=== PATIENT | male | born 1995 | race Caucasian/White ===

== ENCOUNTER 2019-03-10 19:29 | Observation (INO) ==
[2019-03-10] MEDS ORDERED: ALBUTEROL SULFATE/IPRATROPIUM 3 ML NEBU IH ONE ×3 (19:32→19:48)
[2019-03-10] MEDS ORDERED: METHYLPREDNISOLONE SOD SUCC/PF 125 MG/2 ML VIAL IV ONE (19:35)
--- NOTE | 2019-03-10 19:41 | ERNOTE ---
Dyspnea - Date Date of Service: 03/10/19 - General Presenting Symptoms: difficulty of breathing Time Seen by Provider: 03/10/19 19:34 Source: patient, family Exam Limitations: clinical condition - Immun/Allergies/Home Medications Immunizations: IMMUNIZATION HX Immunizations Up to Date Yes History of Influenza Vaccine No Hx Pneumococcal Vaccination No Allergies/Adverse Reactions: Allergies No Known Allergies Allergy (Verified 03/10/19 19:39) Home Medications: HOME MEDICATIONS Albuterol Sulfate [Ventolin HFA] 1 puff IH Q6H PRN #1 inhaler 01/09/18 [Last Taken Unknown] Loratadine [Claritin] 10 mg PO DAILY 01/09/18 [Last Taken Unknown] Methylprednisolone [Medrol Dosepak] 4 mg PO DAILY #21 tab.ds.pk 01/09/18 [Last Taken Unknown] - Pain Score Pain Score #1 Pain Score: 0 - History of Present Illness Narrative: The patient is a 23 year old male who presents for dyspnea which began today. There are associated symptoms of cough. The patient denies pain. There are no alleviating factors. There are aggravating factors of exertion. Previous treatments have included: none. The past medical history includes: noncontributory. The social history is negative. The patient has had no ill contacts. Patient reports he has been having URI type symptoms for the past 2 weeks but today had increased dyspnea with wheezing. Patient arrival via POV. Review of Systems - Review of Systems Constitutional: Present: fatigue. Absent: fever EYE: Present: no symptoms reported ENT: Present: no symptoms reported. Absent: ear pain, nasal drainage, sore throat Respiratory: Present: shortness of breath, cough, wheezing Cardiology: Present: no symptoms reported. Absent: chest pain Gastrointestinal/Abdominal: Present: no symptoms reported. Absent: nausea, vomiting, diarrhea, abdominal pain Genitourinary: Present: no symptoms reported. Absent: dysuria All Other Systems: All systems neg except as marked Social History: Preferred Language Belarusian Smoking Status Never smoker Do you dip or chew tobacco Yes Psych History No pertinent hx Alcohol Use occasionally Drug Use none No Social History Section defined Physical Exam - Physical Exam General Appearance: Present: wd/wn, alert, severe distress Head Exam: Present: normal inspection Eye Exam: Normal inspection: bilateral Respiratory: Present: chest nontender, respiratory distress, accessory muscle use, wheezing - diffuse expiratory, other - subcostal retractions Cardiovascular/Chest: Present: no murmur, tachycardia Gastrointestinal/Abdominal: Present: normal bowel sounds, nontender, nondistended, soft, no organomegaly Neurological Exam: Present: alert, oriented, normal mood/affect Skin Exam: Present: normal color, warm/dry Progress - Date and Time Seen: Date and Time: 03/10/19 20:48 Discussed results with patient. Remains to have diffuse expiratory wheezing and scattered inspiratory wheezing. Patient remains tachycardic with rate of 103 and SpO2 92% RA. Discussed case with . Will admit for observation d ue to asthma attach with need for continued monitoring of medication response. Patient states that he has had similar episodes in the past with treatment but has not been officially dx with asthma or is on any maintenance medication. - Results and Orders Patient's Lab Results:: I have reviewed the patient's lab results. - Vital Signs Patient's Vital Signs:: I have reviewed the patient's vital signs. Vital Signs: Vital Signs 03/10/19 19:34 03/10/19 19:35 Temperature 36.2 C Pulse Rate 123 H 121 H Respiratory Rate 26 H 24 H Blood Pressure 154/119 H O2 Sat by Pulse Oximetry 93 93 - EKG EKG #1 EKG: NSR - tachycardia, nonspecific ST T wave changes EKG read: Reviewed by me - X-Ray X-Ray #1 X-Ray: chest Interpretation: Reviewed by me X-ray Comments: Peribronchial cuffing. Reviewed with . - Progress/Reassessment Chief Complaint: Dyspnea Progress:: Improved Progress Note-Subjective: 03/10/19 20:17 Air exchange improved. Patient breathing more comfortably with resolution of accessory muscle use and retractions. Patient remains to have diffuse audible expiratory wheezing with scattered inspiratory wheezing. Departure Clinical Impression: Asthma attack Qualifiers: Asthma severity: unspecified severity Asthma persistence: unspecified Qualified Code(s): J45.901 - Unspecified asthma with (acute) exacerbation - Departure Disposition: Still a patient Condition: Fair
[2019-03-10 19:50] LABS: Hematocrit 48.5 % (42.0-52.0); Mean Cell Volume 85.8 fl (78-100); Mean Corpuscular Hemoglobin 30.1 pg (27-31); Mean Corpuscular Hgb Conc 35.1 g/dl (32-36); Mean Platelet Volume 10.5 fl (8-11.3); Neutrophil # 8.5 K/mm3 (1.3-6.0); Neutrophil % 63.6 % (42-75.0); Platelet Count 258 K/mm3 (150-450); Red Blood Count 5.65 M/mm3 (4.7-6.0); Red Cell Distribution Width 12.7 % (11.5-14.0); White Blood Count 13.3 K/mm3 (4.0-10.5)
[2019-03-10 20:08] LABS: ALT 44 U/L (19-67); AST 19 U/L (0-48); Albumin * 3.7 gm/dl (3.4-5.0); Alkaline Phosphatase * 77 U/L (50-170); Anion Gap 13.6 mmol/L (6.8-13.8); BUN/Creatinine Ratio 9.6 (9.0-21.6); Bilirubin, Total 0.4 mg/dL (0.0-1.1); Blood Urea Nitrogen 11 mg/dL (6-23); Ca. Corrected For Albumin 8.8 mg/dL (8.4-10.2); Calcium * 8.9 mg/dL (7.9-10.9); Carbon Dioxide 28.4 mmol/L (24-32.6); Chloride 106 mmol/L (97-106); Glucose * 93 mg/dL (70-110); Sodium 144 mmol/L (132-142); Total Protein 7.6 gm/dL (6.2-8.2)
[2019-03-10 20:09] LABS: Troponin I Less than 0.017 ng/mL (0.00-0.10)
--- NOTE | 2019-03-10 22:47 | HP ---
Chief Complaint - Chief Complaint Date of Service: 03/10/19 Time of Service: 22:47 Chief Complaint: SOB,wheezing History of Present Illness: 23-year-old male presented to the ER with 2 weeks of worsening shortness of breath and cough. Patient has history of asthma but has not seen his PCP in over a year. He is out of his inhaler medication which normally helps. Patient states when he gets this way usually just "rides it out "but this time is continued to worsen to the point where he was having significant difficulty breathing. In the ER patient was found to be wheezy bilaterally and was satting 92% on room air. His other vital signs are stable. Patient received 2 DuoNeb treatments and a 125 mg of Solu-Medrol. Patient was admitted to the hospital in observation for acute asthma exacerbation. He denies fever or chills, denies p roductive cough. Medical History (Updated 03/10/19 @ 21:24 by Tania Akhtar RN) Asthma Family History: Family History (Last Reviewed 03/10/19 @ 21:25 by Tania Akhtar RN) Mother Hypertension Grandmother Heart failure Grandfather Heart failure COPD (chronic obstructive pulmonary disease) Social History: Patient Lives/Resources Home Utilized Preferred Language Tajik Do you have any advent or No cultural preference? Smoking Status Never smoker Have you smoked in the past 12 No months Do you dip or chew tobacco Yes Psych History No pertinent hx Alcohol Use occasionally Drug Use none No Social History Section defined Review Of Systems (GEN) - Review of Systems Generalized/Overall Review: Absent: Weakness, Chills, Fever EENTM: Present: No Symptoms Reported Respiratory: Present: Cough, Shortness of Breath, Wheezing Cardiac: Absent: Chest Pain, Edema, Palpitations Abdominal: Present: No Symptoms Reported Genitourinary: Present: No Symptoms Reported Musculoskeletal: Present: No Symptoms Reported Neurological: Present: No Symptoms Reported Skin: Present: No Symptoms Reported Endocrine: Present: No Symptoms Reported Immunizations: IMMUNIZATION HX Immunizations Up to Date Yes History of Influenza Vaccine No Hx Pneumococcal Vaccination No Allergies/Adverse Reactions: Allergies Allergy/AdvReac Type Severity Reaction Status Date / Time No Known Allergies Allergy Verified 03/10/19 19:39 Exam - Exam Vital Signs: Vital Signs - Last Taken Temp 37.6 C 03/10/19 21:28 Pulse 101 H 03/10/19 21:28 Resp 18 03/10/19 21:28 BP 143/82 H 03/10/19 21:28 Pulse Ox 94 03/10/19 21:28 Constitutional: Present: Alert, Oriented x3, No distress, Obese ENT Exam: Present: hearing grossly normal. Absent: nasal congestion, nasal drainage Eye Exam: bilateral eye: normal inspection Neck: Present: non-tender, supple Respiratory: Present: wheezing, expiration (prolonged). Absent: respiratory distress Cardiovascular/Chest: Present: normal peripheral pulses, regular rate, rhythm Abdomen: Present: Normal bowel sounds, soft, nontender Skin Exam: Present: normal color, warm/dry Appearance: Present: appropriate appearance, appropriate insight Eye contact: Present: cooperative, good eye contact Thoughts: Present: normal thought pattern, normal mood /affect Diagnostic Studies: Abnormal Lab Results 03/10/19 03/10/19 Range/Units 19:36 20:02 WBC 13.3 H (4.0-10.5) K/mm3 Immature Gran # (Auto) 0.05 H (0.000-0.0310) K/mm3 Monocytes % 9.7 H (0.0-9) % Eosinophils % 5.2 H (0.0-3.0) % Neutrophils # 8.5 H (1.3-6.0) K/mm3 Monocytes # 1.3 H (0.0-1.0) k/mm3 Sodium 144 H (132-142) mmol/L Plasma Sodium 144 H (130-142) mmol/L Laboratory Results WBC 13.3 K/mm3 (4.0-10.5) H 03/10/19 19:36 RBC 5.65 M/mm3 (4.7-6.0) 03/10/19 19:36 Hgb 17.0 gm/dL (13.5-18.0) 03/10/19 19:36 Hct 48.5 % (42.0-52.0) 03/10/19 19:36 MCV 85.8 fl (78-100) 03/10/19 19:36 MCH 30.1 pg (27-31) 03/10/19 19:36 MCHC 35.1 g/dl (32-36) 03/10/19 19:36 RDW 12.7 % (11.5-14.0) 03/10/19 19:36 Plt Count 258 K/mm3 (150-450) 03/10/19 19:36 MPV 10.5 fl (8-11.3) 03/10/19 19:36 Immature Gran % (Auto) 0.40 % (0.001-0.429) 03/10/19 19:36 Immature Gran # (Auto) 0.05 K/mm3 (0.000-0.0310) H 03/10/19 19:36 63.6 % (42-75.0) 03/10/19 19:36 20.6 % (20-51) 03/10/19 19:36 9.7 % (0.0-9) H 03/10/19 19:36 5.2 % (0.0-3.0) H 03/10/19 19:36 0.5 % (0.0-1.0) 03/10/19 19:36 Nucleated RBC % 0.0 k/mm3 (0-1) 03/10/19 19:36 8.5 K/mm3 (1.3-6.0) H 03/10/19 19:36 2.75 k/mm3 (1.5-3.5) 03/10/19 19:36 1.3 k/mm3 (0.0-1.0) H 03/10/19 19:36 0.7 k/mm3 (0.0-0.7) 03/10/19 19:36 Absolute Basophils 0.1 k/mm3 (0.0-0.1) 03/10/19 19:36 0.33 ug/mL (0.19-0.49) 03/10/19 20:02 Sodium 144 mmol/L (132-142) H 03/10/19 20:02 144 mmol/L (130-142) H 03/10/19 20:02 Potassium 4.0 mmol/L (3.4-4.6) 03/10/19 20:02 Chloride 106 mmol/L (97-106) 03/10/19 20:02 Carbon Dioxide 28.4 mmol/L (24-32.6) 03/10/19 20:02 13.6 mmol/L (6.8-13.8) 03/10/19 20:02 BUN 11 mg/dL (6-23) 03/10/19 20:02 1.15 mg/dL (0.4-1.4) 03/10/19 20:02 Est GFR (Non-Af Amer) 84 mL/min (60-130) 03/10/19 20:02 9.6 (9.0-21.6) 03/10/19 20:02 93 mg/dL (70-110) 03/10/19 20:02 0.8 mmol/L (0.4-2.0) 03/10/19 20:02 Calcium 8.9 mg/dL (7.9-10.9) 03/10/19 20:02 Calcium Adj for Albumin 8.8 mg/dL (8.4-10.2) 03/10/19 20:02 0.4 mg/dL (0.0-1.1) 03/10/19 20:02 AST 19 U/L (0-48) 03/10/19 20:02 ALT 44 U/L (19-67) 03/10/19 20:02 77 U/L (50-170) 03/10/19 20:02 Less than 0.017 ng/mL (0.00-0.10) 03/10/19 20:02 7.6 gm/dL (6.2-8.2) 03/10/19 20:02 3.7 gm/dl (3.4-5.0) 03/10/19 20:02 Assessment/Plan - Narrative Narrative: Patient currently feeling much better after being admitted to the floor with the treatments received in the ER. Will continue duo nebs every 4 hours as needed. We will also resume prednisone in the morning 40 mg every morning which he will go home on for likely another 5 days. Patient agrees to treatment plan, it does look for PCP which I will happily take care of him. Next Patient also wanted to discuss was in the room his history of depression. Patient recently lost his grandfather who he was very close with and has struggled with depression ever since. Patient denies suicidal or homicidal ideation but states that he has limited sivakumar, difficulty sleeping, and does not want to socialize with those around him anymore. Patient endorses actively pushing people away. Family member in the room confirms this. Patient is wondering if he can be started on an antidepressant prior to him leaving as he would not be able to follow-up with me for close to a month due to both her schedules. Explained that we would discuss this again prior to discharge which she agreed with. Regular diet ordered, no DVT prophylaxis patient will be here for only a short time. Nurse will call with any questions or concerns. - Assessment/Plan (1) Asthma attack Problem: Acute Qualifiers: Asthma severity: unspecified severity Asthma persistence: unspecified Qualified Code(s): J45.901 - Unspecified asthma with (acute) exacerbation (2) Depression Problem: Acute
[2019-03-10] MEDS: ALBUTEROL SULFATE/IPRATROPIUM 3 ML NEBU IH SCH (23:18)
[2019-03-11] MEDS: ALBUTEROL SULFATE/IPRATROPIUM 3 ML NEBU IH SCH ×4 (02:05→14:01)
[2019-03-11] MEDS ORDERED: predniSONE 20 MG TABLET PO ONE (07:00)
--- NOTE | 2019-03-11 11:43 | DS ---
(1) Asthma attack Problem: Acute Qualifiers: Asthma severity: unspecified severity Asthma persistence: unspecified Qualified Code(s): J45.901 - Unspecified asthma with (acute) exacerbation (2) Depression Problem: Acute Description of Stay: Patient had no acute events overnight and is feeling much better. His vital signs are stable and he is satting 93% on room air. Lung sounds significantly improved with no wheezes heard. Patient is ready to be discharged home and will in 1 month follow-up with me due to scheduling conflict. Patient will be discharged home with another 5 days of prednisone to be taken starting tomorrow. Patient will also be discharged home with pro-air which she has had in the past and knows how to use. Lastly patient will be started on Prozac 20 mg and will follow-up with me to discuss how his asthma depression is doing in 1 month. Patient did agree with treatment plan, discharged home in stable condition. Procedures Performed: none Results and Findings: Lab Pending Results 03/10/19 19:36: WBC 13.3 H, RBC 5.65, Hgb 17.0, Hct 48.5, MCV 85.8, MCH 30.1, MCHC 35.1, RDW 12.7, Plt Count 258, MPV 10.5, Immature Gran % (Auto) 0.40, Immature Gran # (Auto) 0.05 H, Neutrophils % 63.6, Lymphocytes % 20.6, Monocytes % 9.7 H, Eosinophils % 5.2 H, Basophils % 0.5, Nucleated RBC % 0.0, Neutrophils # 8.5 H, Lymphocytes # 2.75, Monocytes # 1.3 H, Eosinophils # 0.7, Absolute Basophils 0.1 03/10/19 20:02: Sodium 144 H, Plasma Sodium 144 H, Potassium 4.0, Chloride 106, Carbon Dioxide 28.4, Anion Gap 13.6, BUN 11, Creatinine 1.15, Est GFR (Non-Af Amer) 84, BUN/Creatinine Ratio 9.6, Random Glucose 93, Calcium 8.9, Calcium Adj for Albumin 8.8, Total Bilirubin 0.4, AST 19, ALT 44, Alkaline Phosphatase 77, Troponin I Less than 0.017, Total Protein 7.6, Albumin 3.7 03/10/19 20:02: Lactic Acid, Venous 0.8 03/10/19 20:02: D-Dimer 0.33 Discharge Location: Home Disposition: Home self-care Condition: Good Discharge Activity: Activity as tolerated Discharge Diet: General/regular food Referrals: Sudhir Rowe DO [Staff Physician] - (1 month follow up) Prescriptions (Any new or edited meds): FLUoxetine HCL [Fluoxetine HCl] 20 mg PO DAILY #30 cap predniSONE [Prednisone] 2 tab PO DAILY #10 tab Albuterol Sulfate [Proair Hfa] 1 - 2 puff INHALATION Q4H PRN #1 inhaler PRN Reason: Shortness Of Breath Complete Home Medications List: Complete Home Medication List: Albuterol Sulfate [Proair Hfa] 1 - 2 puff INHALATION Q4H PRN #1 inhaler 03/11/19 FLUoxetine HCL [Fluoxetine HCl] 20 mg PO DAILY #30 cap 03/11/19 predniSONE [Prednisone] 2 tab PO DAILY #10 tab 03/11/19
[2019-03-11 17:26] VITALS: BP 141/60
== END 2019-03-11 13:20 | disposition home or self-care (01) ==
LOC: ER 19:29 → MS 19:29
PROVIDERS: ADMIT Family Medicine; ATTEND Family Medicine
CPT/HCPCS: 36415; 71010; 71045; 80053; 83605; 84484; 85025; 85379; 93005; 94640; 94664; 96374; 99285; G0378